=== PATIENT | male | born 1980 | race Caucasian/White ===

== ENCOUNTER 2023-10-25 04:31 | Inpatient (IN) ==
--- NOTE | 2023-10-25 04:51 | Emergency Department Note ---
History of Present Illness General Chief complaint: Chest Pain Stated complaint: SOB, UPPER LEFT CHEST PAIN,POSSIBLE AFIB Time Seen by Provider: 10/25/23 04:37 History of Present Illness Maximum Pain Intensity: 6 This 42-year-old male with a history of A-fib on Eliquis and heart failure noncompliant with Lasix that follows with Dr. Cartwright in [place] presents ER for chest pain and shortness of breath for the past few days steadily getting worse. Patient states is hard for him to take his Lasix because it keeps him up all night. Patient denies fever, chills, cough, congestion. He is up for 5 pounds. He feels like he is back at heart failure. Patient was drinking alcohol over the weekend. No more than normal per him. Home Medications Medication Instructions Recorded Confirmed Type amiodarone 200 mg tablet 200 mg PO BID 10/22/21 12/02/22 History apixaban 5 mg tablet (Eliquis) 5 mg PO BID 10/22/21 12/02/22 History furosemide 40 mg tablet 40 mg PO BID 10/22/21 12/02/22 History metoprolol succinate 25 mg 25 mg PO DAILY 10/22/21 12/02/22 History tablet,extended release 24 hr sacubitril 24 mg-valsartan 26 mg 1 tab PO BID 10/22/21 12/02/22 History tablet (Entresto) spironolactone 25 mg tablet 25 mg PO DAILY 10/22/21 12/02/22 History albuterol sulfate 90 mcg/actuation See Rx Instructions .Route 09/29/22 12/02/22 History aerosol inhaler .COMPLEX PRN Other potassium chloride 20 mEq 20 meq PO DAILY 12/02/22 12/02/22 History tablet,extended release(part/cryst) losartan 25 mg tablet 25 mg PO DAILY 30 days #30 tabs 12/03/22 Rx cyclobenzaprine 10 mg tablet 10 mg PO Q8H PRN muscle spasm #21 08/16/23 Rx tabs Allergies Allergy/AdvReac Type Severity Reaction Status Date / Time No Known Allergies Allergy Verified 10/22/21 16:00 Past Med/Surg History Problem List (Updated 10/25/23 @ 05:24 by Faye Carrillo PA-C) V-tach (Acute) Acute CHF (congestive heart failure) (Acute) Chest pain (Acute) ICD (implantable cardioverter-defibrillator) discharge Chest pain Paroxysmal atrial fibrillation AICD (automatic cardioverter/defibrillator) present (Acute) Nonischemic dilated cardiomyopathy (Acute) Obesity (BMI 30.0-34.9) Acute on chronic systolic CHF (congestive heart failure) (Acute) Anticoagulant long-term use Atrial fibrillation Cardiac defibrillator in place Medical History History of disruption of posterior cruciate ligament Systolic CHF, chronic Cardiomyopathy Surgical History Hx of left knee surgery Family History Mother Coronary heart disease Heart disease Father Heart disease Social History Smoking Status: Never smoker Tobacco Type: Cigarettes Second Hand Exposure: No; Do You Dip or Chew Tobacco: No; Hx Alcohol Use: Yes Alcohol type: beer Hx Substance Use: Yes 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 Preferred Language: Upper Sorbian Communication Ability: Effective Diabetes Educator Required: No Current Living Situation: Spouse Feels Safe at Home: Yes Assistive Devices: None Review of Systems A total of 10 systems reviewed and were otherwise negative Physical Exam Vital Signs Vital Signs - 24 hr 10/25/23 04:36 10/25/23 04:42 10/25/23 04:42 Temperature 36.6 C Temperature Source Oral Pulse Rate 92 H 110 H Respiratory Rate 18 20 Respiratory Effort / Characteristics Non-Labored Spontaneous Respiratory Depth Normal Blood Pressure 156/99 H Blood Pressure Mean 118 Pulse Oximetry 97 99 99 Oxygen Delivery Method Room Air Room Air Room Air Sepsis Recent Fever Within 48 Hours No Sepsis New/Unexplained Change in Mental Status No Sepsis Action Taken by Nursing No Action Required 10/25/23 04:43 10/25/23 04:44 10/25/23 05:00 Temperature Temperature Source Pulse Rate 109 H 97 H 87 Respiratory Rate 16 12 Respiratory Effort / Characteristics Respiratory Depth Blood Pressure 172/101 H 139/112 H Blood Pressure Mean 133 121 Pulse Oximetry 97 94 Oxygen Delivery Method Room Air Room Air Sepsis Recent Fever Within 48 Hours Sepsis New/Unexplained Change in Mental Status Sepsis Action Taken by Nursing 10/25/23 05:04 Temperature Temperature Source Pulse Rate 126 H Respiratory Rate Respiratory Effort / Characteristics Respiratory Depth Blood Pressure Blood Pressure Mean Pulse Oximetry Oxygen Delivery Method Sepsis Recent Fever Within 48 Hours Sepsis New/Unexplained Change in Mental Status Sepsis Action Taken by Nursing VITALS: Vitals are noted on the nurse's note and reviewed by myself. Vital signs stable. GENERAL: Pleasant patient, in no acute distress, nondiaphoretic, well-developed well-nourished. SKIN: Capillary reflex less than 2 seconds. HEENT: Normocephalic. PERRLA. EOMI. Nares patent. Mucous membranes moist. Neck is supple without nuchal rigidity. HEART: Regular rate and rhythm LUNGS: Mild end expiratory bibasilar Rales. No retractions or accessory muscle use. ABDOMEN: Positive bowel sounds x 4. Normal tympanic percussion. Soft, nontender, without masses or organomegaly. Bowden sign negative. No guarding or rebound tenderness. no CVA tenderness MUSCULOSKELETAL: No gross musculoskeletal defects. +1 pitting edema up to the mid tib-fib bilaterally. NEURO: Patient was alert and oriented to person place and time. No focal neurological deficits. Course Administered Medications Discontinued Medications Furosemide (Furosemide 40 Mg/4 Ml Vial) 40 mg IV ONE ONE Stop: 10/25/23 04:47 Last Admin: 10/25/23 04:54 Dose: 40 mg Documented By: MUSA Medical Decision Making Medical Records Attestation: I reviewed the patient's medical records. Home Medications Current Medication List: was personally reviewed by me Laboratory Data Attestation: I reviewed the patient's lab results. 10/25/23 04:45 10/25/23 04:45 Lab Results 10/25/23 Range/Units 04:45 WBC 7.93 (4.8-10.8) K/ul RBC 4.75 (4.70-6.10) M/uL Hgb 14.4 (14.0-18.0) g/dl Hct 43.0 (42.0-52.0) % MCV 90.5 (80.0-100.0) fL MCH 30.3 (25.0-34.0) pg MCHC 33.5 (32.0-36.0) g/dL RDW Std Deviation 41.1 (36.4-46.3) fL RDW Coeff of Jw 12.3 (11.5-14.5) % Plt Count 191 (130-400) K/uL MPV 11.3 (9.4-12.4) fL Immature Gran % (Auto) 0.4 % Neut % (Auto) 58.0 % Lymph % (Auto) 33.3 % [place] % (Auto) 6.8 % Eos % (Auto) 1.0 % Baso % (Auto) 0.5 % Neut # (Auto) 4.60 (1.40-6.50) K/uL Lymph # (Auto) 2.64 (1.20-3.40) K/uL [place] # (Auto) 0.54 (0.11-0.59) K/uL Eos # (Auto) 0.08 (0.00-0.50) K/uL Baso # (Auto) 0.04 (0.00-0.20) K/uL Immature Gran # (Auto) 0.03 (0.01-0.20) K/uL PT 10.5 (9.0-12.0) Seconds INR 1.0 (0.9-1.1) APTT 25 (21-31) Seconds PTT Ratio 0.9 Sodium 138 (136-145) mmol/L Potassium 4.1 (3.5-5.1) mmol/L Chloride 103 (98-107) mmol/L Carbon Dioxide 29 (21-32) mmol/L Anion Gap 6 (3-11) BUN 18 (6-23) mg/dl Creatinine 0.96 (0.6-1.4) mg/dl Est Cr Clr Drug Dosing 122.3 ml/min Est GFR ( Amer) 114.1 ml/min Est GFR (Non-Af Amer) 98.5 ml/min BUN/Creatinine Ratio 18.8 (10-20) Glucose 104 H (70-99(Fasting)) mg/dl Calcium 9.0 (8.6-10.3) mg/dl Magnesium 2.1 (1.7-2.4) mg/dl Total Bilirubin 0.6 (0.2-1.0) mg/dl AST 15 (13-39) U/L ALT 17 (7-52) U/L Alkaline Phosphatase 71 (34-104) U/L Troponin I High Sens 22.3 H (0-20) pg/ml B-Natriuretic Peptide 429 H (0-100) pg/ml Total Protein 6.8 (6.0-8.3) gm/dl Albumin 4.3 (3.4-5.0) gm/dl Globulin 2.5 (2.5-4.0) gm/dl Albumin/Globulin Ratio 1.7 (0.9-2) Lipase 15 (11-82) U/L Imaging Data Attestation: I personally reviewed and interpreted this imaging study as follows: MDM Narrative Prior records/ancillary studies reviewed. Triage Nursing notes reviewed. Additional history obtained from nursing. The patient's history was concerning for chest pain and dyspnea. Differential diagnosis: Etiologies such as cardiac ischemia, aortic dissection, pulmonary embolism, pneumonia, pneumothorax, musculoskeletal, infections, pericarditis, myocarditis, esophageal rupture, gastrointestinal, as well as others were entertained. Physical examination: As above. ER treatment provided: An order was placed for continuous cardiac monitoring. The monitor shows a rate of 60-1 20 with a sinus rhythm per my interpretation. Lasix IV was ordered Patient had a short run of V. tach while in the ER. On reassessment the patient felt better. Diagnostic interpretation by me: The electrocardiogram was ordered for chest pain EKG: Poor baseline, normal sinus, left axis, frequent PVCs, T wave inversions in the anterolateral leads, rate of 98. EKG compared to prior EKG with left ventricular hypertrophy with a left axis deviation and frequent PVCs normal sinus rhythm independently interpreted by myself The labs Independently Interpreted by myself revealed troponin 22 No worrisome leukocytosis, stable H&H BMP 429 Imaging studies: Chest x-ray with heart failure per my independent interpretation HEART SCORE: Hx: high/mod/low suspicion: 1 ECG: ST depression/nonspecific changes/normal: 1 Age: Greater than 65/45-64/less than 45: 0 Risk factors: (Hypertension, hyperlipidemia, diabetes, coronary disease, tobacco use, cocaine use): 2 Troponin: Greater than 2 times normal limits/1-2 times normal limits/normal: 1 Total: 5 Consultation: A consultation was placed with the hospitalist. The case was discussed and diagnostics were reviewed. The patient was evaluated in the ER for further treatment. Exam and history seem consistent with heart failure and a short run of V. tach. Patient has an ICD. The run was very short. He did not feel the shock. He was given Lasix. Medicine was consulted and he will be admitted to the medical service. By the evaluation outlined above emergent etiologies such as aortic dissection, pulmonary embolism, pneumonia, pneumothorax, infections, pericarditis, myocarditis, gastrointestinal, as well as others were deemed relatively unlikely. The pt informed about the findings as listed above. All questions were answered and pleased with the treatment. The chart was completed utilizing [employer] Speech voice recognition software. Grammatical errors, random word insertions, pronoun errors, and incomplete sentences are an occassional consequence of this system due to software limitations, ambient noise, and hardware issues. Any formal questions or concerns about the content, text, or information contained within the body of this dictation should be directly addressed to the physician nurse's assistant for clarification. Impression & Plan Acute on chronic systolic CHF (congestive heart failure), V-tach Discharge Plan Visit Data Chief Complaint: Chest Pain Stated Complaint: SOB, UPPER LEFT CHEST PAIN,POSSIBLE AFIB ED Provider: Laine Small ED Midlevel Provider: Faye Carrillo Discharge Problem: Acute on chronic systolic CHF (congestive heart failure), V-tach Patient Disposition: Admitted As Inpatient Condition: Fair Forms Stand Alone Forms: [facility] [place] [employer] Prescriptions Prescriptions: No Action furosemide 40 mg tablet 40 mg PO BID amiodarone 200 mg tablet 200 mg PO BID spironolactone 25 mg tablet 25 mg PO DAILY metoprolol succinate 25 mg tablet extended release 24 hr 25 mg PO DAILY Eliquis 5 mg tablet 5 mg PO BID Entresto 24-26 mg tablet 1 tab PO BID albuterol sulfate 90 mcg/actuation HFA aerosol inhaler See Rx Instructions .ROUTE .COMPLEX PRN (Reason: Other) Rx Instructions: 1 TO 2 PUFF EVERY 6 HOURS potassium chloride 20 mEq tablet,ER particles/crystals 20 meq PO DAILY losartan 25 mg tablet 25 mg PO DAILY 30 Days Qty: 30 0RF cyclobenzaprine 10 mg tablet 10 mg PO Q8H PRN (Reason: muscle spasm) Qty: 21 0RF Referrals Referrals: Penny Lentz MD [Primary Care Provider] -
[2023-10-25] MEDS: FUROSEMIDE 40 MG/4 ML VIAL IV ONE (04:54)
[2023-10-25 05:02] LABS: Basophils # (auto) 0.04 K/uL (0.00-0.20); Basophils % (auto) 0.5 %; Eosinophils # (auto) 0.08 K/uL (0.00-0.50); Hemoglobin 14.4 g/dl (14.0-18.0); Immature Granulocytes # (auto) 0.03 K/uL (0.01-0.20); Immature Granulocytes % (auto) 0.4 %; Lymphocytes # (auto) 2.64 K/uL (1.20-3.40); Lymphocytes % (auto) 33.3 %; Mean Corpuscular Hemoglobin 30.3 pg (25.0-34.0); Mean Corpuscular Hgb Conc 33.5 g/dL (32.0-36.0); Mean Corpuscular Volume 90.5 fL (80.0-100.0); Mean Platelet Volume 11.3 fL (9.4-12.4); Monocytes # (auto) 0.54 K/uL (0.11-0.59); Monocytes % (auto) 6.8 %; Platelet Count 191 K/uL (130-400); RDW Coefficient of Variation 12.3 % (11.5-14.5); RDW Standard Deviation 41.1 fL (36.4-46.3); Red Blood Count 4.75 M/uL (4.70-6.10); White Blood Count 7.93 K/ul (4.8-10.8)
[2023-10-25 05:19] LABS: Albumin Globulin Ratio 1.7 (0.9-2); Albumin Level 4.3 gm/dl (3.4-5.0); BUN Creatinine Ratio 18.8 (10-20); Bilirubin,Total 0.6 mg/dl (0.2-1.0); Creatinine Clr Calc Pharmacy 122.3 ml/min; Est GFR (African American) 114.1 ml/min; Est GFR (Non-African American) 98.5 ml/min; Globulin 2.5 gm/dl (2.5-4.0); Magnesium 2.1 mg/dl (1.7-2.4); Potassium 4.1 mmol/L (3.5-5.1); Total Protein 6.8 gm/dl (6.0-8.3)
[2023-10-25 05:23] LABS: Troponin I High Sensitivity 22.3 pg/ml (0-20)
[2023-10-25 05:27] LABS: Partial Thromboplastin Ratio 0.9; Partial Thromboplastin Time 25 Seconds (21-31); Prothrombin Time 10.5 Seconds (9.0-12.0)
--- NOTE | 2023-10-25 06:44 | XRay Report ---
XR chest 1V portable HISTORY: 42 years-old Male Chest pain, nonspecific COMPARISON: 12/02/2022 TECHNIQUE: AP view of the chest FINDINGS: Cardiac silhouette is enlarged. Battery pack redemonstrated projecting over the left lateral chest wa ll with lead projected over the left chest. No pneumothorax. Probable trace pleural effusions. Pulmon andriy vascular congestion with interstitial coarsening. Mild bibasilar atelectasis. IMPRESSION: 1. Cardiomegaly with pulmonary edema. 2. Trace pleural effusions. ACT 112: Negative or not required by law. The above report was generated using voice recognition software. It may contain grammatical, syntax o r spelling errors. Electronically signed by: Ruben Ross M.D. 10/25/2023 6:42 AM
--- NOTE | 2023-10-25 07:27 | History & Physical Report ---
Date of Service October 25, 2023 Assessment & Plan (1) Acute on chronic systolic CHF (congestive heart failure): Plan: 42-year-old male with past medical history significant for chronic systolic CHF, status post ICD, A-fib, obesity, sleep apnea as per patient presents with shortness of breath and chest pain. Patient lives in [place]. He works in [employer]. Tonight around 1 AM he was feeling short of breath. Around 4 AM he started feeling some chest discomfort left-sided. He was coming [employer] to work but because of his ongoing symptoms he came to the hospital.Patient states he is more worried about his shortness of breath than chest pain. Denies cough. No fevers. No headache. While putting his shoes on and also while walking in to the hospital he was feeling dizzy. No blurred vision. No runny nose. No sore throat. No cough. Appetite is okay. No difficulty swallowing. No nausea. No abdominal pain. Normal bowel and bladder movements. Says swelling in the legs is same as usual. States today while sleeping he was waking up gasping for breath. Generally he could not lie flat. Patient states about few months back he was diagnosed with severe sleep apnea and was waiting for them to call back with appointment. Received IV Lasix in the ER. Had an episode of 11 beats of V. tach around 5 AM in the ER. Currently resting comfortably and hemodynamic stable. Was able to give his history. Patient states he has no blockages in his heart. 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 Acute on chronic systolic and diastolic CHF EF 25 to 30%. Moderately dilated left ventricular. Mild to moderate mitral regurgitation. Restrictive pattern consistent with diastolic dysfunction grade 3 per echo done on 11/16/2022 Patient is currently taking torsemide 20 mg every other day and spironolactone 25 mg daily. Received dose of IV Lasix 40 mg in the ER Will continue with IV Lasix 40 mg daily and home spironolactone Daily I's and O's Daily weights Will follow echo and serial cardiac enzymes Continue home metoprolol succinate, Entresto and Jardiance Further diuretics as per cardiology Close monitoring telemetry Episode of nonsustained V. tach 11 beats of V. tach around 5 AM Patient is on metoprolol and amiodarone Telemetry interrogate ICD Cardiology consulted Chest pain Mild elevation troponin Initial troponin 22.3 and repeat troponin is 21 Will follow serial cardiac enzymes and echo N.p.o. Cardiology consulted History of A-fib On amiodarone Patient states he is on metoprolol succinate 25 mg daily On Eliquis Will monitor Sleep apnea Patient states he was recently diagnosed with sleep apnea but not prescribed CPAP yet as per patient. Will will order CPAP nightly while in the hospital May consider discharging on oxygen nightly until he gets CPAP Obesity Counseling Nutrition follow-up Hyperlipidemia Statin DVT prophylaxis On Eliquis Disposition Telemetry Full code. History of Present Illness Chief Complaint: Shortness of breath and chest pain Primary Care Provider: Penny Lentz MD 42-year-old male with past medical history significant for chronic systolic CHF, status post ICD, A-fib, obesity, sleep apnea as per patient presents with shortness of breath and chest pain. Patient lives in [place]. He works in [employer]. Tonight around 1 AM he was feeling short of breath. Around 4 AM he started feeling some chest discomfort left-sided. He was coming [employer] to work but because of his ongoing symptoms he came to the hospital.Patient states he is more worried about his shortness of breath than chest pain. Denies cough. No fevers. No headache. While putting his shoes on and also while walking in to the hospital he was feeling dizzy. No blurred vision. No runny nose. No sore throat. No cough. Appetite is okay. No difficulty swallowing. No nausea. No abdominal pain. Normal bowel and bladder movements. Says swelling in the legs is same as usual. States today while sleeping he was waking up gasping for breath. Generally he could not lie flat. Patient states about few months back he was diagnosed with severe sleep apnea and was waiting for them to call back with appointment. Received IV Lasix in the ER. Had an episode of 11 beats of V. tach around 5 AM in the ER. Currently resting comfortably and hemodynamic stable. Was able to give his history. Patient states he has no blockages in his heart. 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 Past medical's. As mentioned above. Past surgical history. ICD placement. Knee replacement. Social history. States quit smoking January 2023. Prior to that smoked 1-1 and half a pack a day for 15 years. Alcohol social drinking. History of cocaine in his late teens. Family history. Mother has CHF. Father has diabetes. Heart disease. Watchman's procedure. Allergies Allergy/AdvReac Type Severity Reaction Status Date / Time No Known Allergies Allergy Verified 10/22/21 16:00 Home Medications Medication Instructions Recorded Confirmed Type amiodarone 200 mg tablet 200 mg PO DAILY 10/25/23 10/25/23 History apixaban 5 mg tablet (Eliquis) 5 mg PO BID 10/25/23 10/25/23 History atorvastatin 10 mg tablet 10 mg PO DAILY 10/25/23 10/25/23 History empagliflozin 10 mg tablet 10 mg PO DAILY 10/25/23 10/25/23 History (Jardiance) metoprolol succinate 25 mg 25 mg PO DAILY 10/25/23 10/25/23 History tablet,extended release 24 hr potassium chloride 10 mEq 10 meq PO DAILY 10/25/23 10/25/23 History tablet,extended release sacubitril 24 mg-valsartan 26 mg 1 tab PO BID 10/25/23 10/25/23 History tablet (Entresto) spironolactone 25 mg tablet 25 mg PO DAILY 10/25/23 10/25/23 History torsemide 20 mg tablet 20 mg PO Q2D 10/25/23 10/25/23 History Past Med/Surg History Problem List (Updated 10/25/23 @ 05:24 by Faye Carrillo PA-C) V-tach (Acute) Acute CHF (congestive heart failure) (Acute) Chest pain (Acute) ICD (implantable cardioverter-defibrillator) discharge Chest pain Paroxysmal atrial fibrillation AICD (automatic cardioverter/defibrillator) present (Acute) Nonischemic dilated cardiomyopathy (Acute) Obesity (BMI 30.0-34.9) Acute on chronic systolic CHF (congestive heart failure) (Acute) Anticoagulant long-term use Atrial fibrillation Cardiac defibrillator in place Medical History History of disruption of posterior cruciate ligament Systolic CHF, chronic Cardiomyopathy Surgical History Hx of left knee surgery Family History Mother Coronary heart disease Heart disease Father Heart disease Social History Smoking Status: Never smoker Tobacco Type: Cigarettes Second Hand Exposure: No; Do You Dip or Chew Tobacco: No; Hx Alcohol Use: Yes Alcohol type: beer Hx Substance Use: Yes 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 Preferred Language: Austrian Communication Ability: Effective Button Sewer Hand Required: No Current Living Situation: Spouse Feels Safe at Home: Yes Assistive Devices: None Review of Systems Review of Systems: All systems reviewed & are unremarkable except as noted in HPI & below Physical Exam Physical Exam: General-Not in distress Head- atraumatic Eyes- PERRL. ENT- oropharynx clear Neck- supple, no JVD Lungs- clear to auscultation mild bibasilar crackles, no wheezing Heart- regular rhythm; no murmur, no gallop. Abdomen- normal bowel sounds, soft, nontender, no distension Extremities- trace pretibial edema present , no erythema seen Neuro- alert, oriented PERRL, EOMI; no facial palsy; no dysarthria; moves extremities Results & Data Results & Data Vital Signs (Past 12 Hours) Vital Signs Temp Pulse Resp BP Pulse Ox O2 Del Method 10/25/23 05:30 103 H 21 139/96 90 Room Air 10/25/23 05:04 126 H 10/25/23 05:00 87 12 139/112 H 94 Room Air 10/25/23 04:44 97 H 16 172/101 H 97 Room Air 10/25/23 04:43 109 H 10/25/23 04:42 110 H 20 99 Room Air 10/25/23 04:42 99 Room Air 10/25/23 04:36 36.6 C 92 H 18 156/99 H 97 Room Air Diagnostic Findings Laboratory Results WBC 7.93 K/ul (4.8-10.8) 10/25/23 04:45 RBC 4.75 M/uL (4.70-6.10) 10/25/23 04:45 Hgb 14.4 g/dl (14.0-18.0) 10/25/23 04:45 Hct 43.0 % (42.0-52.0) 10/25/23 04:45 MCV 90.5 fL (80.0-100.0) 10/25/23 04:45 MCH 30.3 pg (25.0-34.0) 10/25/23 04:45 MCHC 33.5 g/dL (32.0-36.0) 10/25/23 04:45 RDW Std Deviation 41.1 fL (36.4-46.3) 10/25/23 04:45 RDW Coeff of Jw 12.3 % (11.5-14.5) 10/25/23 04:45 Plt Count 191 K/uL (130-400) 10/25/23 04:45 MPV 11.3 fL (9.4-12.4) 10/25/23 04:45 Immature Gran % (Auto) 0.4 % 10/25/23 04:45 Neut % (Auto) 58.0 % 10/25/23 04:45 Lymph % (Auto) 33.3 % 10/25/23 04:45 [place] % (Auto) 6.8 % 10/25/23 04:45 Eos % (Auto) 1.0 % 10/25/23 04:45 Baso % (Auto) 0.5 % 10/25/23 04:45 Neut # (Auto) 4.60 K/uL (1.40-6.50) 10/25/23 04:45 Lymph # (Auto) 2.64 K/uL (1.20-3.40) 10/25/23 04:45 [place] # (Auto) 0.54 K/uL (0.11-0.59) 10/25/23 04:45 Eos # (Auto) 0.08 K/uL (0.00-0.50) 10/25/23 04:45 Baso # (Auto) 0.04 K/uL (0.00-0.20) 10/25/23 04:45 Immature Gran # (Auto) 0.03 K/uL (0.01-0.20) 10/25/23 04:45 PT 10.5 Seconds (9.0-12.0) 10/25/23 04:45 INR 1.0 (0.9-1.1) 10/25/23 04:45 APTT 25 Seconds (21-31) 10/25/23 04:45 PTT Ratio 0.9 10/25/23 04:45 Sodium 138 mmol/L (136-145) 10/25/23 04:45 Potassium 4.1 mmol/L (3.5-5.1) 10/25/23 04:45 Chloride 103 mmol/L (98-107) 10/25/23 04:45 Carbon Dioxide 29 mmol/L (21-32) 10/25/23 04:45 Anion Gap 6 (3-11) 10/25/23 04:45 BUN 18 mg/dl (6-23) 10/25/23 04:45 Creatinine 0.96 mg/dl (0.6-1.4) 10/25/23 04:45 Est Cr Clr Drug Dosing 122.3 ml/min 10/25/23 04:45 Est GFR ( Amer) 114.1 ml/min 10/25/23 04:45 Est GFR (Non-Af Amer) 98.5 ml/min 10/25/23 04:45 BUN/Creatinine Ratio 18.8 (10-20) 10/25/23 04:45 Glucose 104 mg/dl (70-99(Fasting)) H 10/25/23 04:45 Calcium 9.0 mg/dl (8.6-10.3) 10/25/23 04:45 Magnesium 2.1 mg/dl (1.7-2.4) 10/25/23 04:45 Total Bilirubin 0.6 mg/dl (0.2-1.0) 10/25/23 04:45 AST 15 U/L (13-39) 10/25/23 04:45 ALT 17 U/L (7-52) 10/25/23 04:45 Alkaline Phosphatase 71 U/L (34-104) 10/25/23 04:45 Troponin I High Sens 21.0 pg/ml (0-20) H 10/25/23 06:27 B-Natriuretic Peptide 429 pg/ml (0-100) H 10/25/23 04:45 Total Protein 6.8 gm/dl (6.0-8.3) 10/25/23 04:45 Albumin 4.3 gm/dl (3.4-5.0) 10/25/23 04:45 Globulin 2.5 gm/dl (2.5-4.0) 10/25/23 04:45 Albumin/Globulin Ratio 1.7 (0.9-2) 10/25/23 04:45 Lipase 15 U/L (11-82) 10/25/23 04:45 Ethyl Alcohol mg/dL < 10.0 mg/dl (<10.0) 10/25/23 05:23 Impressions Chest X-Ray 10/25/23 04:39 XR chest 1V portable HISTORY: 42 years-old Male Chest pain, nonspecific COMPARISON: 12/02/2022 TECHNIQUE: AP view of the chest FINDINGS: Cardiac silhouette is enlarged. Battery pack redemonstrated projecting over the left lateral chest wall with lead projected over the left chest. No pneumothorax. Probable trace pleural effusions. Pulmonary vascular congestion with interstitial coarsening. Mild bibasilar atelectasis. IMPRESSION: 1. Cardiomegaly with pulmonary edema. 2. Trace pleural effusions. ACT 112: Negative or not required by law. The above report was generated using voice recognition software. It may contain grammatical, syntax or spelling errors. Electronically signed by: Ruben Ross M.D. 10/25/2023 6:42 AM ECG Additional Comments: ECG. Sinus rhythm with frequent PVCs rate of 98. Left axis deviation. Minimal voltage criteria for LVH. T wave abnormality in lateral leads Code Status & VTE Plan VTE Prophylaxis Plan VTE Prophylaxis will be ordered: Yes
[2023-10-25] MEDS ORDERED: NITROGLYCERIN SL 0.4 MG/TAB TAB SL PRN (09:25)
[2023-10-25] MEDS ORDERED: ACETAMINOPHEN 325 MG TAB PO PRN (09:25)
--- NOTE | 2023-10-25 10:01 | Hospitalist Progress Note ---
Date of Service October 25, 2023 Assessment & Plan (1) Acute on chronic systolic CHF (congestive heart failure): Plan Pt is a 42-year-old male with past medical history significant for chronic systolic CHF, status post ICD, A-fib, obesity, sleep apnea as per patient presents with shortness of breath and chest pain. Patient lives in [place]. He works in [employer]. Tonight around 1 AM he was feeling short of breath. Around 4 AM he started feeling some chest discomfort left-sided. He was coming [employer] to work but because of his ongoing symptoms he came to the hospital.Patient states he is more worried about his shortness of breath than chest pain. Denies cough. No fevers. No headache. While putting his shoes on and also while walking in to the hospital he was feeling dizzy. No blurred vision. No runny nose. No sore throat. No cough. Appetite is okay. No difficulty swallowing. No nausea. No abdominal pain. Normal bowel and bladder movements. Says swelling in the legs is same as usual. States today while sleeping he was waking up gasping for breath. Generally he could not lie flat. Patient states about few months back he was diagnosed with severe sleep apnea and was waiting for them to call back with appointment. Received IV Lasix in the ER. Had an episode of 11 beats of V. tach around 5 AM in the ER. Currently resting comfortably and hemodynamically stable. Was able to give his history. Patient states he has no blockages in his heart. 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 Acute on chronic systolic and diastolic CHF EF 25 to 30%. Moderately dilated left ventricular. Mild to moderate mitral regurgitation. Restrictive pattern consistent with diastolic dysfunction grade 3 per echo done on 11/16/2022 Patient is currently taking torsemide 20 mg every other day and spironolactone 25 mg daily. Received dose of IV Lasix 40 mg in the ER Will continue with IV Lasix 40 mg daily and home spironolactone Daily I's and O's Daily weights Follow echo and serial cardiac enzymes Continue home metoprolol succinate, Entresto and Jardiance Cardiology consulted, appreciate recs Close monitoring telemetry Episode of nonsustained V. tach 11 beats of V. tach around 5 AM Patient is on metoprolol and amiodarone Telemetry interrogate ICD Cardiology consulted Chest pain Mild elevation troponin Initial troponin 22.3 and repeat troponin is 21 echo Cardiology consulted History of A-fib On amiodarone Patient states he is on metoprolol succinate 25 mg daily On Eliquis Continue to monitor Obstructive Sleep apnea Patient states he was recently diagnosed with sleep apnea but not prescribed CPAP yet as per patient. Will will order CPAP nightly while in the hospital May consider discharging on oxygen nightly until he gets CPAP Obesity Counseling Nutrition follow-up Hyperlipidemia Statin Diet: hh/low sodium DVT prophylaxis: On Eliquis Dispo: pt/ot for further recs once medically stable Admission and Anticipated Discharge Date Admission Date: October 25, 2023 Subjective Pt was seen in rm [id number] Denied SOB, chest pain or perceived leg swelling at the time. Was having his echo done. Review of Systems Review of Systems: All systems reviewed & are unremarkable except as noted in Subjective Physical Exam Physical Exam: General: Alert, oriented. No acute distress Skin: No noted rashes or bruises Psych: Appropriate mood and affect Neuro: No gross deficits HEENT: NC/AT Chest: Nontender to palpation. CV: RRR Resp: Breath sounds clear bilaterally, no increased effort of breathing. Abdomen: Soft, nontender, nondistended. Extremities: trace edema in lower extremities bilaterally. Results & Data Results & Data Vital Signs (Past 12 Hours) Vital Signs Temp Pulse Pulse Resp BP BP Pulse Ox 10/25/23 09:17 36.5 C 90 18 117/85 97 10/25/23 09:10 10/25/23 09:01 71 18 126/90 99 10/25/23 08:00 85 16 110/67 98 10/25/23 05:30 103 H 21 139/96 90 10/25/23 05:04 126 H 10/25/23 05:00 87 12 139/112 H 94 10/25/23 04:44 97 H 16 172/101 H 97 10/25/23 04:43 109 H 10/25/23 04:42 110 H 20 99 10/25/23 04:42 99 10/25/23 04:36 36.6 C 92 H 18 156/99 H 97 O2 Del Method 10/25/23 09:17 Room Air 10/25/23 09:10 Room Air 10/25/23 09:01 Room Air 10/25/23 08:00 10/25/23 05:30 Room Air 10/25/23 05:04 10/25/23 05:00 Room Air 10/25/23 04:44 Room Air 10/25/23 04:43 10/25/23 04:42 Room Air 10/25/23 04:42 Room Air 10/25/23 04:36 Room Air Diagnostic Findings Chest X-Ray 10/25/23 04:39 XR chest 1V portable HISTORY: 42 years-old Male Chest pain, nonspecific COMPARISON: 12/02/2022 TECHNIQUE: AP view of the chest FINDINGS: Cardiac silhouette is enlarged. Battery pack redemonstrated projecting over the left lateral chest wall with lead projected over the left chest. No pneumothorax. Probable trace pleural effusions. Pulmonary vascular congestion with interstitial coarsening. Mild bibasilar atelectasis. IMPRESSION: 1. Cardiomegaly with pulmonary edema. 2. Trace pleural effusions. ACT 112: Negative or not required by law. The above report was generated using voice recognition software. It may contain grammatical, syntax or spelling errors. Electronically signed by: Ruben Ross M.D. 10/25/2023 6:42 AM
[2023-10-25] MEDS: POTASSIUM CHLORIDE 10 MEQ TABCR PO SCH (11:04)
[2023-10-25] MEDS: ATORVASTATIN 10 MG TAB PO SCH (11:04)
[2023-10-25] MEDS: FUROSEMIDE 40 MG/4 ML VIAL IV SCH (11:04)
[2023-10-25] MEDS: METOPROLOL SUCC 25MG EXT REL TAB PO SCH (11:04)
[2023-10-25] MEDS: AMIODARONE 200 MG TAB PO SCH (11:04)
[2023-10-25] MEDS: EMPAGLIFLOZIN 10 MG TAB PO SCH (11:04)
[2023-10-25] MEDS: APIXABAN 5 MG TABLET PO SCH (11:04)
[2023-10-25] MEDS: SPIRONOLACTONE 25 MG TAB PO SCH (11:04)
[2023-10-25] MEDS: VALSARTAN/SACUBITRIL 26/24MG TAB PO SCH (11:04)
--- NOTE | 2023-10-25 11:18 | Cardiology Consultation ---
Date of Consultation October 25, 2023 Assessment & Plan (1) Acute on chronic systolic CHF (congestive heart failure): (2) Nonischemic dilated cardiomyopathy: (3) AICD (automatic cardioverter/defibrillator) present: (4) Chest pain: (5) V-tach: Plan Assessment: 42 year-old male with known complex cardiac history diagnosed around non-ischemic cardiomyopathy, with significant family history of NICM, presents with heart failure exacerbation despite diet and medication compliance. Plan: Acute on chronic systolic CHF Nonischemic dilated cardiomyopathy AICD -Patient with signs/symptoms of volume overload, chest xray also suggestive of CHF. -Agree to start Furosemide 40mg IV daily and reassess volume status in the AM -Maintain strict daily weights (standing scale preferred), I&O as well as close monitoring of renal function and electrolytes. -Patient endorses medication and diet compliance. States that he has not been tolerating torsemide well. - Continue GDMT with Furosemide, Amiodarone, Eliquis, Atorvastatin Jardiance, Toprol xl, Entresto (), and Spironolactone. -CHF teaching. -Maintain Serum K> 4.0 and serum Mag > 2.0. -obtain device interrogation, subcutaneous AICD, [employer], May need device rep to do interrogation. Chest Pain: Nonsustained Ventricular Tachycardia: -Chest pain appears atypical in nature. EKG with no acute ST-T wave changes and minimal troponin elevation with flat trend likely s/t heart failure. -Echocardiogram today notes poor LVEF, slightly worse in comparison to prior. One time episode of non-sustained VT in the ED 11 beats, asymptomatic. -Will await device interrogation to determine if patient has experienced a ICD shock to explain his chest discomfort - No evidence of A-fib on telemetry although patient carries a history of this and takes Amiodarone, Toprol xl and Eliquis. -Continue Amiodarone, and Toprol xl -Plan is to aggressively diurese patient in the setting of acute on chronic systolic heart failure. Will need close follow up with his primary training developer and HF team with consideration for pursuing the transplant work up. Case has been discussed with Dr. Reed. Further recommendations regarding plan of care as per his assessment. I spent a total of 40 minutes on the date of service in preparation, delivery, documentation of the care provided to the patient excluding any time spent in the performance of separately billed services. CODY Vela [facility] Cardiology [facility] Supervising Physician Co-Signing Physician Notes Patient seen and personally examined. Full assessment and plan as outlined by advanced provider as above. Care and management discussed personally endorse 42-year-old male with nonischemic cardiomyopathy (possibly inherited congenital) with severe LV dysfunction by current and past examinations. Subcutaneous ICD in place with past ventricular arrhythmias Admitted with acute on chronic systolic heart failure with pulmonary edema. Appears subacute in onset but culminating in marked orthopnea and respiratory distress Improving with IV diuretics Echocardiogram demonstrates severe LV dysfunction with global hypokinesis EF 20- 25%. Mitral insufficiency moderate to severe is present due to dilated mitral valve annulus. Per review of past records this appears more severe than in the past Plan as above treat volume overload with diuresis. Continue excellent guideline directed medical therapy is already on. Interrogate subcutaneous ICD Agree with initiating therapies for sleep apnea History of Present Illness Reason for Consultation: acute systolic heart failure Requesting Physician: Aura hospitalist Attending Physician: Joyce Dhillon MD History of Present Illness HPI: Patient is a 42 year-old male with history of Chronic systolic heart failure, and sleep apnea (has not started a CPAP yet) tht presented to the ED with complaints of shortness of breath and chest discomfort. Patient states that he had been feeling his usual state of health until last evening when he started to notice some increased shortness of breath and orthopnea. He reports that he struggled most of the night to get comfortable and fall asleep, only to wake gasping. Patient also endorses some mild persistent left anterior chest wall discomfort both sharp and pressure like, not intense, but more of a feeling that it is "just there". He felt dizzy this morning with portion changes, but those were very brief in nature. Per review of records, patient had an 11 beat run of VT while in the ED. Review of telemetry today shows SR with PVC's. Occasional couplet. patient follows with Dr. Ladd and Dr. Umair Grace at [facility]. he has had a cardiac cath dating back to 2020 which demonstrates normal coronaries. Patient states that he was last seen in the office by Dr. Grace Mar 2023 stable from a cardiac perspective. He admits that he was really struggling with his PO Furosemide and therefore was switched to Torsemide with PRN use. He feels that he has not tolerated the Torsemide well does not get results from it. 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 Denies any Tobacco use, No illicit drug use (states none since the age of 26), and occasional ETOH use on the weekends, up to a 6 pack, but not every weekend. EKG shows SR with Frequent PVC's, left axis deviation, T wave abnormality noted in lateral leads. rate 98 Bpm. Chest xray as follows: IMPRESSION: 1. Cardiomegaly with pulmonary edema. 2. Trace pleural effusions. BNP with mild elevation High sensitivity troponin 22.3--> 21.0 Allergies Allergy/AdvReac Type Severity Reaction Status Date / Time No Known Allergies Allergy Verified 10/22/21 16:00 Home Medications Medication Instructions Recorded Confirmed Type amiodarone 200 mg tablet 200 mg PO DAILY 10/25/23 10/25/23 History apixaban 5 mg tablet (Eliquis) 5 mg PO BID 10/25/23 10/25/23 History atorvastatin 10 mg tablet 10 mg PO DAILY 10/25/23 10/25/23 History empagliflozin 10 mg tablet 10 mg PO DAILY 10/25/23 10/25/23 History (Jardiance) metoprolol succinate 25 mg 25 mg PO DAILY 10/25/23 10/25/23 History tablet,extended release 24 hr potassium chloride 10 mEq 10 meq PO DAILY 10/25/23 10/25/23 History tablet,extended release sacubitril 24 mg-valsartan 26 mg 1 tab PO BID 10/25/23 10/25/23 History tablet (Entresto) spironolactone 25 mg tablet 25 mg PO DAILY 10/25/23 10/25/23 History torsemide 20 mg tablet 20 mg PO Q2D 10/25/23 10/25/23 History Patient History Medical History History of disruption of posterior cruciate ligament Systolic CHF, chronic Cardiomyopathy Surgical History Hx of left knee surgery Family History Mother Coronary heart disease Heart disease Father Heart disease Social History Smoking Status: Former smoker Tobacco Type: Cigarettes Second Hand Exposure: No; Do You Dip or Chew Tobacco: No; Hx Alcohol Use: Yes Alcohol type: beer Hx Substance Use: No Preferred Language: Mongolian Communication Ability: Effective [place] Management Specialist Required: No Beliefs That Will Affect Care: None Current Living Situation: Family Other Information That Helps Us Care for You: No Feels Safe at Home: Yes Safety Concerns: Feels Safe At This Time Assistive Devices: None Review of Systems Review of Systems: All systems reviewed & are unremarkable except as noted in HPI & below Physical Exam Constitutional: well developed and well nourished; no acute distress and not ill appearing Neck: normal visual inspection and trachea midline Respiratory: normal respiratory effort and + cough; no respiratory distress, no labored breathing and no retractions Auscultation: + diminished lung sounds (bilateral bases ) and + crackles (faint crackles left lower base ); no rales, no rhonchi and no wheezes Cardiovascular: Heart Sounds: normal S1, normal S2 and + murmur (+2/6 systolic ) Vessels: no JVD Extremities: no edema Skin: no rashes, warm and dry Psychiatric: A+Ox3, euthymic affect Results & Data Vital Signs (Past 12 Hours) Vital Signs Temp Pulse Pulse Resp BP BP Pulse Ox 10/25/23 09:20 92 H 10/25/23 09:17 36.5 C 90 18 117/85 97 10/25/23 09:10 10/25/23 09:01 71 18 126/90 99 10/25/23 08:00 85 16 110/67 98 10/25/23 05:30 103 H 21 139/96 90 10/25/23 05:04 126 H 10/25/23 05:00 87 12 139/112 H 94 10/25/23 04:44 97 H 16 172/101 H 97 10/25/23 04:43 109 H 10/25/23 04:42 110 H 20 99 10/25/23 04:42 99 10/25/23 04:36 36.6 C 92 H 18 156/99 H 97 O2 Del Method 10/25/23 09:20 10/25/23 09:17 Room Air 10/25/23 09:10 Room Air 10/25/23 09:01 Room Air 10/25/23 08:00 10/25/23 05:30 Room Air 10/25/23 05:04 10/25/23 05:00 Room Air 10/25/23 04:44 Room Air 10/25/23 04:43 10/25/23 04:42 Room Air 10/25/23 04:42 Room Air 10/25/23 04:36 Room Air Laboratory Results Cardiac Enzymes 10/25/23 10/25/23 Range/Units 04:45 06:27 AST 15 (13-39) U/L Troponin I High Sens 22.3 H 21.0 H (0-20) pg/ml B-Natriuretic Peptide 429 H (0-100) pg/ml Coagulation 10/25/23 Range/Units 04:45 PT 10.5 (9.0-12.0) Seconds APTT 25 (21-31) Seconds B-Natriuretic Peptide 429 H (0-100) pg/ml CBC 10/25/23 Range/Units 04:45 WBC 7.93 (4.8-10.8) K/ul RBC 4.75 (4.70-6.10) M/uL Hgb 14.4 (14.0-18.0) g/dl Hct 43.0 (42.0-52.0) % Plt Count 191 (130-400) K/uL Neut # (Auto) 4.60 (1.40-6.50) K/uL Lymph # (Auto) 2.64 (1.20-3.40) K/uL Maries # (Auto) 0.54 (0.11-0.59) K/uL Eos # (Auto) 0.08 (0.00-0.50) K/uL Baso # (Auto) 0.04 (0.00-0.20) K/uL Comprehensive Metabolic Panel 10/25/23 Range/Units 04:45 Sodium 138 (136-145) mmol/L Potassium 4.1 (3.5-5.1) mmol/L Chloride 103 (98-107) mmol/L Carbon Dioxide 29 (21-32) mmol/L BUN 18 (6-23) mg/dl Creatinine 0.96 (0.6-1.4) mg/dl Glucose 104 H (70-99(Fasting)) mg/dl Calcium 9.0 (8.6-10.3) mg/dl AST 15 (13-39) U/L ALT 17 (7-52) U/L Alkaline Phosphatase 71 (34-104) U/L Total Protein 6.8 (6.0-8.3) gm/dl Albumin 4.3 (3.4-5.0) gm/dl Intake and Output 10/24/23 10/25/23 10/25/23 22:59 06:59 14:59 Output Total 650 / 650 Balance -650 / -650 Output: Urine 650 / 650 Other: Weight 112.2 kg 113.4 kg Weight Measurement Method [facility] Patient Weight 10/26/23 06:59 Weight 113.4 kg Diagnostic Findings Cardiac MRI 05/06/2023: [facility] Summary: 1.Dilated left ventricular size by 1D confirmed to be severely dilated by 3D volumetric analysis (LV ED Volume Index 174 mL/m ). Moderate to Severely reduced Left ventricular systolic function. Moderate left ventricular eccentric hypertrophy by a left ventricular mass index (LV Mass Index 106 g/m).. Global hypokinesis Due to ferromagnetic artifacts from ICD lead, volumetric LVEF assessment can be inaccurate. Visually LVEF 20% 2. Dilated right ventricular size by 1D confirmed to be mildly dilated by 3D volumetric analysis (RV ED Volume Index 114 mL/m ). Mildly reduced right ventricular systolic function. No evidence of right ventricular hypertrophy by right ventricular mass index (RV Mass Index 30 g/m). 3D RVEF = 44 %. TAPSE = 21 (23 mm >lower limits of normal). 3. Mitral regurgitation regurgitant fraction could not be assessed due to resonance artifacts. There is mild tricuspid regurgitation with regurgitation volume of 21 ml and regurgitant fraction of 18%. No evidence of other significant valvular heart disease. Phase velocity mapping x 2 was performed to better assess valve function. 4. Dilated left atrium and normal sized right atrium 6. TIR imaging was performed and is normal (no evidence of intramyocardial water). 7 Late gadolinium enhancement (LGE) imaging was performed and is abnormal. There is mid wall stripe in the basal to mid septal segments consistent with nonischemic cardiomyopathy. There is RV insertion LGE. No evidence of infiltrative disease or prior infarct. 8. No evidence of pericardial or pleural effusion. 9. The main pulmonary artery, right and left pulmonary arteries are of normal caliber. The ascending aorta, including the aortic root, sinus of Valsalva, sino-tubular junction are of normal caliber. The aortic arch, descending thoracic aorta and the aorta at the level of the diaphragm are of normal caliber. Superior and inferior vena cava and coronary sinus are normal in caliber. Echocardiograms: 10/25/2023: LV moderately dilated Normal LV wall thickness Severe global hypokinesis of the LV LVEF 20-25% Left atrium moderately dilated Mitral valve annulus is dilated with restricted posterior mitral valve leaflet mobility. Moderate to severe eccentric mitral insufficiency and a posterior directed jet mild TR 11/2022: LVEF 25-30%, AoR 3.1cm, PaP 16mmHg, JAYE 2.3cm2, AV MG 2.9mmHg, mild-mod MR, mild TR, trace PA, moderately dilated with segmental abnormalities, thickened MV, mod LA enlargement, DD grade 3 10/2021: LVEF 20-25%. AoR 3.7 cm. LV mod dilated. Borderline LVH. Diffuse h ypokinesis. Trace MR, TR, PA. PAP 22 mmHg. AV PG 7 mmHg. AV MG 5 mmHg. AV area 3.5 cm2. DD2 04/2021: EF 15-20%. Catheterizations: 11/15/2020: Normal coronaries. Cardiac output 5.5, cardiac index 2.4.
[2023-10-25 12:11] LABS: Magnesium 2.1 mg/dl (1.7-2.4)
[2023-10-25 12:18] LABS: Troponin I High Sensitivity 19.3 pg/ml (0-20)
--- NOTE | 2023-10-25 13:16 | Electrocardiogram Report ---
Test Reason : Blood Pressure : */* mmHG Vent. Rate : 98 BPM Atrial Rate : 98 BPM P-R Int : 170 ms QRS Dur : 106 ms QT Int : 374 ms P-R-T Axes : 41 -37 161 degrees QTcB Int : 477 ms Sinus rhythm with frequent Premature ventricular complexes Left axis deviation Minimal voltage criteria for LVH, may be normal variant Anterior infarct , age undetermined T wave abnormality, consider lateral ischemia Abnormal ECG When compared with ECG of 03-Dec-2022 06:20, Significant changes have occurred Confirmed by Tito Dill ([id number]) on 10/25/2023 1:16:11 PM Referred By: REFERRED SELF Confirmed By: Tito Dill
[2023-10-26 04:48] VITALS: RESP 18
[2023-10-26 06:00] LABS: Hematocrit (blood only) 44.9 % (42.0-52.0); Hemoglobin 15.7 g/dl (14.0-18.0); Mean Corpuscular Hemoglobin 30.7 pg (25.0-34.0); Mean Corpuscular Volume 87.9 fL (80.0-100.0); Mean Platelet Volume 11.2 fL (9.4-12.4); Platelet Count 186 K/uL (130-400); RDW Coefficient of Variation 12.2 % (11.5-14.5); RDW Standard Deviation 39.3 fL (36.4-46.3); Red Blood Count 5.11 M/uL (4.70-6.10); White Blood Count 8.05 K/ul (4.8-10.8)
[2023-10-26 06:16] LABS: Calcium 9.4 mg/dl (8.6-10.3); Creatinine Clr Calc Pharmacy 125.6 ml/min; Est GFR (African American) 117.1 ml/min; Magnesium 2.3 mg/dl (1.7-2.4); Phosphorus 3.5 mg/dl (2.5-4.9); Potassium 3.8 mmol/L (3.5-5.1)
[2023-10-26 07:52] VITALS: O2SAT 96
--- NOTE | 2023-10-26 09:08 | Hospitalist Progress Note ---
Date of Service October 26, 2023 Assessment & Plan (1) Acute on chronic systolic CHF (congestive heart failure): Plan Pt is a 42-year-old male with past medical history significant for chronic systolic CHF, status post ICD, A-fib, obesity, sleep apnea as per patient presents with shortness of breath and chest pain. Patient lives in [place]. He works in [employer]. Tonight around 1 AM he was feeling short of breath. Around 4 AM he started feeling some chest discomfort left-sided. He was coming [employer] to work but because of his ongoing symptoms he came to the hospital.Patient states he is more worried about his shortness of breath than chest pain. Denies cough. No fevers. No headache. While putting his shoes on and also while walking in to the hospital he was feeling dizzy. No blurred vision. No runny nose. No sore throat. No cough. Appetite is okay. No difficulty swallowing. No nausea. No abdominal pain. Normal bowel and bladder movements. Says swelling in the legs is same as usual. States today while sleeping he was waking up gasping for breath. Generally he could not lie flat. Patient states about few months back he was diagnosed with severe sleep apnea and was waiting for them to call back with appointment. Received IV Lasix in the ER. Had an episode of 11 beats of V. tach around 5 AM in the ER. Currently resting comfortably and hemodynamically stable. Was able to give his history. Patient states he has no blockages in his heart. 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 Acute on chronic systolic and diastolic CHF EF 25 to 30%. Moderately dilated left ventricular. Mild to moderate mitral regurgitation. Restrictive pattern consistent with diastolic dysfunction grade 3 per echo done on 11/16/2022 Patient is currently taking torsemide 20 mg every other day and spironolactone 25 mg daily. Received dose of IV Lasix 40 mg in the ER Will continue with IV Lasix 40 mg daily and home spironolactone Daily I's and O's Daily weights Follow echo and serial cardiac enzymes Continue home metoprolol succinate, Entresto and Jardiance Cardiology consulted, appreciate recs Close monitoring telemetry Episode of nonsustained V. tach 11 beats of V. tach around 5 AM Patient is on metoprolol and amiodarone Telemetry interrogate ICD Cardiology consulted Chest pain Mild elevation troponin Initial troponin 22.3 and repeat troponin is 21 echo Cardiology consulted History of A-fib On amiodarone Patient states he is on metoprolol succinate 25 mg daily On Eliquis Continue to monitor Obstructive Sleep apnea Patient states he was recently diagnosed with sleep apnea but not prescribed CPAP yet as per patient. Will will order CPAP nightly while in the hospital May consider discharging on oxygen nightly until he gets CPAP Obesity Counseling Nutrition follow-up Hyperlipidemia Statin Diet: hh/low sodium DVT prophylaxis: On Eliquis Dispo: pt/ot for further recs once medically stable Admission and Anticipated Discharge Date Admission Date: October 25, 2023 Physical Exam Physical Exam: General: Alert, oriented. No acute distress Skin: No noted rashes or bruises Psych: Appropriate mood and affect Neuro: No gross deficits HEENT: NC/AT Chest: Nontender to palpation. CV: RRR Resp: Breath sounds clear bilaterally, no increased effort of breathing. Abdomen: Soft, nontender, nondistended. Extremities: trace edema in lower extremities bilaterally. Results & Data Results & Data Vital Signs (Past 12 Hours) Vital Signs Temp Pulse Pulse Resp BP Pulse Ox O2 Del Method 10/26/23 07:51 36.6 C 76 18 113/75 96 Room Air 10/26/23 04:47 36.6 C 69 18 102/71 99 Room Air 10/26/23 03:04 10 L 10/25/23 22:15 36.5 C 74 18 95/65 L 94 Room Air 10/25/23 22:05 76 21 98 10/25/23 21:11 Room Air
--- NOTE | 2023-10-26 09:18 | Cardiology Progress Note ---
Date of Service October 26, 2023 Assessment & Plan (1) Acute on chronic systolic CHF (congestive heart failure): (2) Nonischemic dilated cardiomyopathy: (3) AICD (automatic cardioverter/defibrillator) present: (4) Chest pain: (5) V-tach: Plan Assessment: 42 year-old male with known complex cardiac history diagnosed around non-ischemic cardiomyopathy, with significant family history of NICM, presents with heart failure exacerbation despite diet and medication compliance. Plan: Acute on chronic systolic CHF Nonischemic dilated cardiomyopathy AICD -Patient with signs/symptoms of volume overload, chest xray also suggestive of CHF. -Agree to start Furosemide 40mg IV daily and reassess volume status in the AM -Maintain strict daily weights (standing scale preferred), I&O as well as close monitoring of renal function and electrolytes. -Patient endorses medication and diet compliance. States that he has not been tolerating torsemide well. - Continue GDMT with Furosemide, Amiodarone, Eliquis, Atorvastatin Jardiance, Toprol xl, Entresto (), and Spironolactone. -CHF teaching. -Maintain Serum K> 4.0 and serum Mag > 2.0. -obtain device interrogation, subcutaneous AICD, [employer], May need device rep to do interrogation. Chest Pain: Nonsustained Ventricular Tachycardia: -Chest pain appears atypical in nature. EKG with no acute ST-T wave changes and minimal troponin elevation with flat trend likely s/t heart failure. -Echocardiogram today notes poor LVEF, slightly worse in comparison to prior. One time episode of non-sustained VT in the ED 11 beats, asymptomatic. -Will await device interrogation to determine if patient has experienced a ICD shock to explain his chest discomfort - No evidence of A-fib on telemetry although patient carries a history of this and takes Amiodarone, Toprol xl and Eliquis. -Continue Amiodarone, and Toprol xl -Plan is to aggressively diurese patient in the setting of acute on chronic systolic heart failure. Will need close follow up with his primary avian keeper and HF team with consideration for pursuing the transplant work up. 10/26/2023: -Patient is diuresing well and shows significant improvement on exam. -4L fluid deficit and -6kg weight loss. -Discussed patient's response to Furosemide and through shared decision making, patient would like to transition to PO Furosemide at time of discharge. We will stop IV furosemide in favor of starting Furosemide 80mg PO QAM. -Renal function and electrolytes remain stable with goal Serum K> 4.0 and Serum Mag greater than 2.0. -Reviewed echocardiogram results with patient. LVEF remains severely reduced at 20-25% (unchanged), but there appears to be moderate to severe mitral insufficiency which appears to have progressed since prior study. This leaves us with the question if his mitral valve disease is progressing or is it appears worse on this study due to profound volume overload. -Plan is for patient to have close follow up with his Primary avian keeper/HF specialist (Dr. Cartwright and Dr. Grace), and will need a repeat echo at some juncture. -Continue other GDMT therapies including Toprol xl, Entresto, Spironolactone, Atorvastatin and Jardiance. -[employer] device rep presented earlier today to interrogate device. No shocks delivered and patient's short non-sustained VT has remained under the threshold. No report available for review. -Continue Amiodarone and Eliquis. -Patient is ok for discharge from a cardiac standpoint when ok with primary team. Need to ensure he has close follow up with his primary avian keeper in 2-3 weeks. Recommend Outpatient BMP in one week to assess response to Furosemide. Case has been discussed with Dr. Reed. Further recommendations regarding plan of care as per his assessment. I spent a total of 30 minutes on the date of service in preparation, delivery, documentation of the care provided to the patient excluding any time spent in the performance of separately billed services. CODY Vela [facility] Cardiology [facility] Admission and Anticipated Discharge Date Admission Date: October 25, 2023 Supervising Physician Co-Signing Physician Notes Patient seen and personally examined. Full assessment and plan as outlined by advanced provider as above. Care and management discussed personally endorse 42-year-old male with nonischemic cardiomyopathy (possibly inherited congenital) with severe LV dysfunction by current and past examinations. Subcutaneous ICD in place with past ventricular arrhythmias Admitted with acute on chronic systolic heart failure with pulmonary edema. Appears subacute in onset but culminating in marked orthopnea and respiratory distress Echocardiogram demonstrates severe LV dysfunction with global hypokinesis EF 20- 25%. Mitral insufficiency moderate to severe is present due to dilated mitral valve annulus. Per review of past records this appears more severe than in the past Patient has responded very promptly to IV diuretics with clinical improvement. ICD without sustained arrhythmia or discharge Patient stable for discharge on oral diuretics at furosemide 80 mg/day. Patient notes torsemide ineffective CHF instructions once again reiterated Patient to follow-up with primary avian keeper. Noted moderate to severe mitral sufficiency observed on echocardiogram may reflect acute volume overload versus possible cause. Will need to be followed closely Patient otherwise maintaining excellent GDMT already present on hospitalization Subjective 10/26/2023: Patient seen and examined in follow up today. Feeling well overall. He is sitting up on the edge of bed. Remains on room air and is in respiratory distress. Denies any chest pain, pressure or palpitations. Denies shortness of breath, PND, orthopnea, pre-syncope, syncope or edema. Labs, vitals, diagnostics, telemetry and documentation reviewed. Telemetry reviewed showing SR with occasional PVC's rates 90's. Review of telemetry demonstrates one 12 beat run of VT at 0145. No other events. -4L fluid balance. -6Kg weight reduction Review of Systems Review of Systems: All systems reviewed & are unremarkable except as noted in HPI & below Physical Exam Constitutional: well developed and well nourished; no acute distress and not ill appearing Neck: normal visual inspection and trachea midline Respiratory: normal respiratory effort; no respiratory distress, no labored breathing and no retractions Auscultation: lungs clear to auscultation bilaterally; no crackles, no rales, no rhonchi and no wheezes Cardiovascular: Rate/Rhythm: regular rate and regular rhythm Heart Sounds: normal S1, normal S2 and + murmur (+2/6 systolic ) Vessels: no JVD Extremities: no edema Skin: no rashes, warm and dry Psychiatric: A+Ox3, euthymic affect Results & Data Vital Signs (Past 12 Hours) Vital Signs Temp Pulse Pulse Resp BP Pulse Ox O2 Del Method 10/26/23 07:51 36.6 C 76 18 113/75 96 Room Air 10/26/23 04:47 36.6 C 69 18 102/71 99 Room Air 10/26/23 03:04 10 L 10/25/23 22:15 36.5 C 74 18 95/65 L 94 Room Air 10/25/23 22:05 76 21 98 Laboratory Results Cardiac Enzymes 10/25/23 10/25/23 10/25/23 Range/Units 11:17 16:57 22:33 Troponin I High Sens 19.3 14.8 D 17.1 (0-20) pg/ml CBC 10/26/23 Range/Units 05:27 WBC 8.05 (4.8-10.8) K/ul RBC 5.11 (4.70-6.10) M/uL Hgb 15.7 (14.0-18.0) g/dl Hct 44.9 (42.0-52.0) % Plt Count 186 (130-400) K/uL Comprehensive Metabolic Panel 10/26/23 Range/Units 05:27 Sodium 137 (136-145) mmol/L Potassium 3.8 (3.5-5.1) mmol/L Chloride 103 (98-107) mmol/L Carbon Dioxide 26 (21-32) mmol/L BUN 16 (6-23) mg/dl Creatinine 0.94 (0.6-1.4) mg/dl Glucose 101 H (70-99(Fasting)) mg/dl Calcium 9.4 (8.6-10.3) mg/dl Intake and Output 10/25/23 10/26/23 10/26/23 22:59 06:59 14:59 Intake Total 800 / 800 Output Total 2250 / 4550 Balance -1450 / -3750 Intake: Oral 800 / 800 Output: Urine 2250 / 4550 Other: Weight 106.685 kg Diagnostic Findings Echocardiogram demonstrates severe LV dysfunction with global hypokinesis EF 20- 25%. Mitral insufficiency moderate to severe is present due to dilated mitral valve annulus. Per review of past records this appears more severe than in the past
[2023-10-26 11:05] VITALS: BP 97/65; TEMP 97.5
--- NOTE | 2023-10-26 14:59 | Discharge Summary ---
Discharge Summary Date of Service October 26, 2023 Principal Dx & Hospital Course #1 = Principal Diagnosis (1) Acute on chronic systolic CHF (congestive heart failure): Plan Pt is a 42-year-old male with past medical history significant for chronic systolic CHF, status post ICD, A-fib, obesity, sleep apnea as per patient presents with shortness of breath and chest pain. Patient lives in [place]. He works in [employer]. Tonight around 1 AM he was feeling short of breath. Around 4 AM he started feeling some chest discomfort left-sided. He was coming [employer] to work but because of his ongoing symptoms he came to the hospital.Patient states he is more worried about his shortness of breath than chest pain. Denies cough. No fevers. No headache. While putting his shoes on and also while walking in to the hospital he was feeling dizzy. No blurred vision. No runny nose. No sore throat. No cough. Appetite is okay. No difficulty swallowing. No nausea. No abdominal pain. Normal bowel and bladder movements. Says swelling in the legs is same as usual. States today while sleeping he was waking up gasping for breath. Generally he could not lie flat. Patient states about few months back he was di agnosed with severe sleep apnea and was waiting for them to call back with appointment. Received IV Lasix in the ER. Had an episode of 11 beats of V. tach around 5 AM in the ER. Currently resting comfortably and hemodynamically stable. Was able to give his history. Patient states he has no blockages in his heart. 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 Acute on chronic systolic and diastolic CHF Nonischemic Cardiomyopathy EF 25 to 30%. Moderately dilated left ventricular. Mild to moderate mitral regurgitation. Restrictive pattern consistent with diastolic dysfunction grade 3 per echo done on 11/16/2022 Patient is currently taking torsemide 20 mg every other day and spironolactone 25 mg daily. Received dose of IV Lasix 40 mg in the ER Continued with IV Lasix 40 mg daily and home spironolactone Daily I's and O's Daily weights Repeated echo: severe LV dysfunction with global hypokinesis EF 20-25%, mitral insufficiency moderate to severe due to dilated mitral valve annulus. Continued home metoprolol succinate, Entresto and Jardiance Cardiology consulted, noted/stated the following on day of discharge: "Patient has responded very promptly to IV diuretics with clinical improvement...Patient stable for discharge on oral diuretics at furosemide 80 mg/day. Patient notes torsemide ineffective. CHF instructions once again reiterated Patient to follow-up with primary property analyst. Noted moderate to severe mitral sufficiency observed on echocardiogram may reflect acute volume overload versus possible cause. Will need to be followed closely Patient otherwise maintaining excellent GDMT already present on hospitalization" Continue GDMT with Furosemide, Amiodarone, Eliquis, Atorvastatin, Jardiance, Toprol xl, Entresto (), and Spironolactone. Please ensure close followup with pt's property analyst after discharge. Per Cardiology, "-Plan is for patient to have close follow up with his Primary property analyst/HF specialist (Dr. Cartwright and Dr. Grace), and will need a repeat echo at some juncture." Episode of nonsustained V. tach 11 beats of V. tach around 5 AM Patient is on metoprolol and amiodarone Interrogated ICD Cardiology consulted -ICD without sustained arrhythmia or discharge Please ensure close followup with pt's property analyst after discharge Chest pain Demand ischemia Mild elevation troponin Initial troponin 22.3 and repeat troponin is 21 echo as above Cardiology consulted History of A-fib On amiodarone Patient states he is on metoprolol succinate 25 mg daily On Eliquis Cardiology followup as above. Per cardiology No evidence of A-fib on telemetry although patient carries a history of this and takes Amiodarone, Toprol xl and Eliquis. Obstructive Sleep apnea Patient states he was recently diagnosed with sleep apnea but not prescribed CPAP yet as per patient. Ordered CPAP nightly while in the hospital PCP followup Obesity Counseling Nutrition follow-up PCP followup Hyperlipidemia Statin, continue Notes For Next Care Provider Please ensure followup with pt's cardiologists. Per Cardiology, "-Plan is for patient to have close follow up with his Primary property analyst/HF specialist (Dr. Cartwright and Dr. Grace), and will need a repeat echo at some juncture." Medication Changes From Visit Per cardiology, d/c torsemide, start lasix 80mg daily Admission HPI Per Admitting Provider 42-year-old male with past medical history significant for chronic systolic CHF, status post ICD, A-fib, obesity, sleep apnea as per patient presents with shortness of breath and chest pain. Patient lives in [place]. He works in [employer]. Tonight around 1 AM he was feeling short of breath. Around 4 AM he started feeling some chest discomfort left-sided. He was coming [employer] to work but because of his ongoing symptoms he came to the hospital.Patient states he is more worried about his shortness of breath than chest pain. Denies cough. No fevers. No headache. While putting his shoes on and also while walking in to the hospital he was feeling dizzy. No blurred vision. No runny nose. No sore throat. No cough. Appetite is okay. No difficulty swallowing. No nausea. No abdominal pain. Normal bowel and bladder movements. Says swelling in the legs is same as usual. States today while sleeping he was waking up gasping for breath. Generally he could not lie flat. Patient states about few months back he was diagnosed with severe sleep apnea and was waiting for them to call back with appointment. Received IV Lasix in the ER. Had an episode of 11 beats of V. tach around 5 AM in the ER. Currently resting comfortably and hemodynamic stable. Was able to give his history. Patient states he has no blockages in his heart. 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 Past medical's. As mentioned above. Past surgical history. ICD placement. Knee replacement. Social history. States quit smoking January 2023. Prior to that smoked 1-1 and half a pack a day for 15 years. Alcohol social drinking. History of cocaine in his late teens. Family history. Mother has CHF. Father has diabetes. Heart disease. Watchman's procedure. Admission Exam Per Admitting Provider General-Not in distress Head- atraumatic Eyes- PERRL. ENT- oropharynx clear Neck- supple, no JVD Lungs- clear to auscultation mild bibasilar crackles, no wheezing Heart- regular rhythm; no murmur, no gallop. Abdomen- normal bowel sounds, soft, nontender, no distension Extremities- trace pretibial edema present , no erythema seen Neuro- alert, oriented PERRL, EOMI; no facial palsy; no dysarthria; moves extremities Discharge Exam General: Alert, oriented. No acute distress Skin: No noted rashes or bruises Psych: Appropriate mood and affect Neuro: No gross deficits HEENT: NC/AT Chest: Nontender to palpation. CV: RRR Resp: Breath sounds clear bilaterally, no increased effort of breathing. Abdomen: Soft, nontender, nondistended. Extremities: trace edema in lower extremities bilaterally. Updated Medication List Medication Instructions Recorded Confirmed Type amiodarone 200 mg tablet 200 mg PO DAILY 10/25/23 10/25/23 History apixaban 5 mg tablet (Eliquis) 5 mg PO BID 10/25/23 10/25/23 History atorvastatin 10 mg tablet 10 mg PO DAILY 10/25/23 10/25/23 History empagliflozin 10 mg tablet 10 mg PO DAILY 10/25/23 10/25/23 History (Jardiance) metoprolol succinate 25 mg 25 mg PO DAILY 10/25/23 10/25/23 History tablet,extended release 24 hr potassium chloride 10 mEq 10 meq PO DAILY 10/25/23 10/25/23 History tablet,extended release sacubitril 24 mg-valsartan 26 mg 1 tab PO BID 10/25/23 10/25/23 History tablet (Entresto) spironolactone 25 mg tablet 25 mg PO DAILY 10/25/23 10/25/23 History torsemide 20 mg tablet 20 mg PO Q2D 10/25/23 10/25/23 History furosemide 80 mg tablet 80 mg PO QAM #30 tabs 10/26/23 Rx Hospital Stay Data Consultations 10/25/23 05:32 ED Decision to Admit Stat 10/25/23 09:25 Consult Cardiology Routine Diagnostic Imagining Performed Chest X-Ray 10/25/23 04:39 XR chest 1V portable HISTORY: 42 years-old Male Chest pain, nonspecific COMPARISON: 12/02/2022 TECHNIQUE: AP view of the chest FINDINGS: Cardiac silhouette is enlarged. Battery pack redemonstrated projecting over the left lateral chest wall with lead projected over the left chest. No pneumoth orax. Probable trace pleural effusions. Pulmonary vascular congestion with interstitial coarsening. Mild bibasilar atelectasis. IMPRESSION: 1. Cardiomegaly with pulmonary edema. 2. Trace pleural effusions. ACT 112: Negative or not required by law. The above report was generated using voice recognition software. It may contain grammatical, syntax or spelling errors. Electronically signed by: Ruben Ross M.D. 10/25/2023 6:42 AM Pending Results Patient Have Any Pending Studies at Discharge: No Discharge Instructions Given to Patient (Per Discharging Provider) Silvano, You were seen by Cardiology and they are recommending discharge home with oral lasix 80mg daily. Stop taking your home torsemide. They recommend that you very closely follow up with your property analyst after discharge. Please keep close follow up with your primary care provider after discharge. Please do not hesitate to come back to the emergency room if your symptoms worsen or return. It was a pleasure taking care of you while you were here. Total Time Total Time Spent Total Time Spent (In Minutes): 65
[2023-10-26 15:59] VITALS: PULSE 67
[2023-10-27] MEDS ORDERED: FUROSEMIDE 80 MG TAB PO SCH (09:00)
--- NOTE | 2023-10-27 09:05 | Electrocardiogram Report ---
Test Reason : Blood Pressure : */* mmHG Vent. Rate : 62 BPM Atrial Rate : 62 BPM P-R Int : 176 ms QRS Dur : 108 ms QT Int : 468 ms P-R-T Axes : -11 -34 234 degrees QTcB Int : 475 ms Normal sinus rhythm Left axis deviation Minimal voltage criteria for LVH, may be normal variant Anterior infarct (cited on or before 25-Oct-2023) T wave abnormality, consider inferolateral ischemia Abnormal ECG When compared with ECG of 25-Oct-2023 04:42, Premature ventricular complexes are no longer Present Vent. rate has decreased by 36 bpm Confirmed by Tito Dill ([id number]) on 10/27/2023 9:04:37 AM Referred By: REFERRED SELF Confirmed By: Tito Dill
== END 2023-10-26 16:46 | disposition home or self-care (01) | DRG 292 ==
LOC: ED 04:31 → 4W 06:25